=== PATIENT | female | born 1985 ===

== ENCOUNTER 2025-05-26 18:25 | Emergency (ER) | payer BC, SELFPAY ==
--- NOTE | ~2025-05-26 | XR_ITS ---
CLINICAL HISTORY: chest pain 2 view chest x-ray. Comparison: None Findings: The lungs are adequately expanded. No focal consolidation. No effusion or pneumothorax. Cardiac and mediastinal contours are within normal limits. No acute osseous abnormality Impression: No acute process. This document has been electronically signed by: Be Ham MD on 05/26/2025 19:41:48
[2025-05-26 18:31] VITALS: BP 148/87; PULSE 58; RESP 14; TEMP 37; O2SAT 100; BMI 20.6
--- NOTE | 2025-05-26 18:35 | ED_ITS ---
HPI - Chest Pain General Chief Complaint: Back Pain/Injury Stated Complaint: ?Pneumonia Time Seen by Provider: 05/26/25 20:57 Source: patient and old records reviewed Mode of arrival: ambulatory Limitations: no limitations History of Present Illness ED Provider: MAGGIE ARROYO narrative: 39 yo female with PMH of pneumonia 2 months ago who started with nasal congestion, thick secretions and facial pain, redness to eyes. She also has some dull L sided chest pain and back pain both sides and is worried she has pneumonia as this is how it started last time. She has not had fevers. She is not on OCPS, no travel or procedures. No hx of heart disease. She uses methadone and has cut down recently - she is snorting only at times no IVDA. She is a smoker. MD complaint: chest pain (URI, back pain) Onset (ago): day(s) (3) Timing of current episode: episodic Prior episodes: Yes Onset: during rest Pain location: left chest Pain radiation: none Severity: mild Quality: aching Relieving factors: nothing Exacerbating factors: nothing Context: recent illness Associated symptoms: cough Treatment prior to arrival: none Related Data Previous Rx's ?Medication ?Instructions ?Recorded amoxicillin 875 mg-potassium 1 tab PO BID #13 tabs 12/20 clavulanate 125 mg tablet Allergies Allergy/AdvReac Type Severity Reaction Status Date / Time risperidone (From RISPERDAL) Allergy Unknown TONGUE Verified 05/26/25 18:33 SWELLING. Review of Systems 2 Review of Systems: Constitutional : No Weight loss, No Fever, No Chills, ENT/Mouth : No Hearing loss, No Ear Pain, pos Nasal Congestion, pos Sinus Pain, No Hoarseness, No sore throat, pos Rhinorrhea, No Swallowing Difficulty Cardiovascular : pos Chest Pain, No SOB Respiratory : No Cough, No Dyspnea Gastrointestinal : No Nausea, No Vomiting, No Diarrhea, No abdominal Pain, No Hematochezia, No Melena Genitourinary : No Dysuria, No Urinary Frequency, No Hematuria, No Urinary Incontinence, Musculoskeletal : positive back pain Skin : No Skin Lesions, No rash Neuro : No Weakness, No Numbness, No Paresthesias, no loss of bowel or bladder incontinence, no saddle anesthesia all other systems reviewed and are negative PMFSH Past Medical History Attestation statement: The following information was validated with the patient. Source: old records reviewed Medical History Pneumonia Opiate use Social History Social History (Updated 05/26/25 @ 22:07 by Suzanna Robles DO) Patient Tobacco Use Status: Current everyday Tobacco user Smoked in Last 30 Days: Yes Use of substances other than those prescribed or required for medical reasons: Yes Substance Use Type: Heroin Advance Directives: No Advance Directives Information Provided: No Do you have a plan to hurt others: No Plan Patient : No Physical Exam 2 Vital Signs: Vital Signs: Last Vital Signs Temp 98.0 F 05/26/25 22:28 Pulse 70 05/26/25 22:28 Resp 18 05/26/25 22:28 BP 101/81 05/26/25 22:28 Pulse Ox 100 05/26/25 22:28 O2 Del Method Room Air 05/26/25 22:28 BMI result Body Mass Index 20.6 Appearance: Alert. Oriented X3. No acute distress. Eyes: Pupils equal, round and reactive to light. mild injected sclera no drainage ENT: Pharynx normal. TMs normal, facial pressure and max sinus bilateral ext puffiness no facial cellulitis Neck: Normal inspection. Neck supple. CVS: Normal heart rate and rhythm. Pulses normal. Respiratory: No respiratory distress. Breath sounds L lung scant exp wheezes upper lobe Abdomen: Soft and nontender. Back: no ttp Skin: Skin warm and dry. Normal skin color. Normal skin turgor. Extremities: No lower extremity edema. No calf ttp Neuro: Oriented X 3. No motor deficit. No sensory deficit. CN2-12 intact Course Course Course Narrative: This is an RME performed by Rosendo Ansari CNP: Additional HPI, ROS, PE not included below will be deferred to primary provider. patient is a 39 year presents emergency department for evaluation. Due to 3 months ago she was diagnosed with pneumonia, completed entire course of antibiotics. She has been experiencing pain diffusely across the mid back, anterior chest, fatigue and dizziness. Admits to having some moving previously. Denies cough, congestion, fevers or chills. Has had a decreased appetite but /vomiting. Plan: Serum labs, ECG, CXR Medications Administered Discontinued Medications Generic Name Dose Route Start Last Admin Trade Name Freq PRN Reason Stop Dose Admin Albuterol Sulfate 2 puff 05/26/25 21:56 05/26/25 22:08 Albuterol Sulfate 90 Mcg 8 Gm Inhaler INHALE 05/26/25 21:57 2 puff ONCE ONE Administration Amoxicillin/Clavulanate Potassium 875 mg 05/26/25 21:56 05/26/25 22:08 Amoxicillin/Potassium Clav 875 Mg Tablet PO 05/26/25 21:57 875 mg ONCE ONE Administration Medical Decision Making Medical Decision Making [facility] Narrative: 39 yo female with PMH of pneumonia, opiate use disorder here with c/o URI symptoms with exam consistent with sinusitis she also has vague back pain and chest pain but PERC negative, no risk factors for ACS, no IVDA to suggest endocarditis, distal pulses intact and symmetric and no HTN to suggest dissection. She is not toxic appearing will start on INH and augmentin and refer her to PCP for recheck HR Differential Diagnosis Differential Diagnoses: The differential diagnosis associated with the presentation includes no risk factors for ACS, PE neg by PERC, denies IVDA doubt endocarditis she is not toxic appearing slight bradycardia on EKG but no ischemia suspect URI and MSK pain will treat as sinusitis Admission/Observation Consideration of admission/observation: Escalation of care including admission/observation considered work up reassured can be managed with oral outpatient abx Lab Data [facility] Lab Attestation statement: I reviewed the patient's lab results. 05/26/25 18:48 05/26/25 18:48 Labs: Lab Results 05/26/25 Range/Units 18:48 WBC 9.6 (4.8-10.8) X10*3/uL RBC 3.94 L (4.20-5.50) X10*6/uL Hgb 12.2 (12.0-16.0) g/dl Hct 34.2 L (37.0-47.0) % MCV 86.8 (80.0-98.0) fL MCH 31.0 (27.0-33.0) pg MCHC 35.7 H (31.0-35.0) g/dl RDW 12.7 (11.0-16.0) % Plt Count 237 (160-400) X10*3/uL MPV 10.0 (9.4-12.3) fL Immature Gran % (Auto) 0.4 (0.0-0.4) % Neut % (Auto) 63.0 (45-73) % Lymph % (Auto) 28.8 (20-40) % Alfalfa % (Auto) 6.4 (2-11) % Eos % (Auto) 1.0 (0-4) % Baso % (Auto) 0.4 (0-2) % Lymph # (Auto) 2.8 (1.2-4.9) X10*3/uL Alfalfa # (Auto) 0.6 (0.1-1.2) X10*3/uL Eos # (Auto) 0.1 (0.0-0.4) X10*3/uL Baso # (Auto) 0.0 (0.0-0.2) X10*3/uL Abs Immat Gran (auto) 0.04 H (0.00-0.03) X10*3/uL Absolute Neuts (auto) 6.0 (2.0-8.3) x10*3/uL Absolute Nucleated RBC 0.000 (0.0-0.012) X10*3/uL Nucleated RBC % (auto) 0.0 (0.0-0.2) /100WBC Sodium 137 (135-145) mmol/L Potassium 3.5 (3.3-5.1) mmol/L Chloride 104 (96-108) mmol/L Carbon Dioxide 26 (22-29) mmol/L Anion Gap 11 L (12-20) BUN 11 (9-16) mg/dL Creatinine 0.63 (0.5-1.4) mg/dL Estim Creat Clear Calc 105.0 Estimated GFR > 60 Random Glucose 104 (60-115) mg/dL Calcium 8.9 (8.4-10.2) mg/dL Total Bilirubin 0.3 (0.0-1.0) mg/dL AST 21 (5-31) U/L ALT 19 (0-31) U/L Alkaline Phosphatase 44 (39-117) U/L Troponin I High Sens < 2.7 (<3.5-17.0) ng/L Total Protein 7.3 (6.5-8.0) g/dL Albumin 4.5 (3.5-5.0) g/dL Lipase 10 (8-78) U/L Influenza Type A (PCR) NEGATIVE (Negative) Influenza Type B (PCR) NEGATIVE (Negative) RSV RNA Qual (PCR) NEGATIVE (Negative) SARS-CoV-2 RNA (RT-PCR) NEGATIVE (Negative) Independent Interpretation I performed an independent interpretation of an: EKG and Plain X-Ray (normal ) Interpretation: Rate: 48 Rhythm: sinus bradycardia [place]: normal Normal P waves. Normal AIDAN. Normal QRS complex. ST T wave : no MIRLANDE, inverted t wave V1 qTC: 389 prior studies: no acute ischemia The study has been interpreted contemporaneously by me. . Radiology Impression Discussion of test interpretation with radiology: I have reviewed the radiologist's reading. Prescription Management I considered prescription management with: Antibiotic and Other Discharge Plan Discharge Clinical Impression: Thoracic back pain, Sinusitis Patient Disposition: Home, Self-Care Instructions: Sinusitis (ED), Back Pain (ED) Additional Instructions: labs reassuring EKG no signs of heart attack but slow heart rate - can recheck your pulse in clinic repeat checks normal - no significant concern heart tests normal, chest xray no pneumonia negative for covid, flu, rsv return for any worsening symptoms or concerns can use inhaler 2 puffs every 4 hours for wheezing On amoxicillin-clavulanate, softer bowel movements are to be expected. Call your provider if you move your bowels more than 4 times a day, your bowel movements are almost all liquid, or you get a rash.? Prescriptions: New amoxicillin-pot clavulanate 875-125 mg tablet 1 tab PO BID Qty: 13 0RF Interventions: ED Discharge Assessment Last Done: 05/26/25 22:28 Discharge Date/Time: 05/26/25 22:29 Print Language: Setswana
--- NOTE | 2025-05-26 18:35 | ECG_ITS ---
Test Reason : cp Blood Pressure : */* mmHG Vent. Rate : 48 BPM Atrial Rate : 48 BPM P-R Int : 180 ms QRS Dur : 94 ms QT Int : 436 ms P-R-T Axes : -7 59 33 degrees QTcB Int : 389 ms Sinus bradycardia Minimal voltage criteria for LVH, may be normal variant ( Sokolow-Abrams ) Borderline ECG No previous ECGs available Referred By: Generic ED Physician Electronically Signed By: MAURICIO ALAS MD
[2025-05-26 18:52] LABS: MANUAL DIFF FLAG NO
[2025-05-26 18:56] LABS: Hematocrit 34.2 % (37.0-47.0); Hemoglobin 12.2 g/dl (12.0-16.0); Imm Gran Abs Auto 0.04 X10*3/uL (0.00-0.03); Imm Gran Pct Auto 0.4 % (0.0-0.4); Lymphocytes Absolute Auto 2.8 X10*3/uL (1.2-4.9); Mean Corpuscular HGB Conc 35.7 g/dl (31.0-35.0); Mean Corpuscular Hemoglobin 31.0 pg (27.0-33.0); Mean Corpuscular Volume 86.8 fL (80.0-98.0); NRBC Abs Auto 0.000 X10*3/uL (0.0-0.012); NRBC Pct Auto 0.0 /100WBC (0.0-0.2); Platelet Count 237 X10*3/uL (160-400); Red Blood Count 3.94 X10*6/uL (4.20-5.50); White Blood Count 9.6 X10*3/uL (4.8-10.8)
[2025-05-26 19:10] LABS: Alanine Aminotransferase 19 U/L (0-31); Albumin Level 4.5 g/dL (3.5-5.0); Alkaline Phosphatase 44 U/L (39-117); Anion Gap 11 (12-20); Aspartate Amino Transferase 21 U/L (5-31); Blood Urea Nitrogen 11 mg/dL (9-16); Calcium 8.9 mg/dL (8.4-10.2); Carbon Dioxide 26 mmol/L (22-29); Chloride 104 mmol/L (96-108); Creatinine Clr Calc Pharmacy 105.0; Estimated Glomerular Filt Rate > 60; Lipase 10 U/L (8-78); Potassium 3.5 mmol/L (3.3-5.1); Sodium 137 mmol/L (135-145); Total Protein 7.3 g/dL (6.5-8.0)
[2025-05-26 19:19] LABS: Troponin-I High Sensitivity < 2.7 ng/L (<3.5-17.0)
[2025-05-26 19:32] LABS: Resp Syncy Virus RNA Qual PCR NEGATIVE (Negative); SARS COV2 PCR INHOUSE NEGATIVE (Negative)
[2025-05-26 20:23] VITALS: BP 126/81; PULSE 65; RESP 20; TEMP 36.7; O2SAT 99
[2025-05-26 22:00] VITALS: BP 101/81; PULSE 70; RESP 18; TEMP 36.7; O2SAT 100
[2025-05-26] MEDS: Albuterol Sulfate 90 MCG 8 GM INHALER 2 PUFF INHALE (22:08)
[2025-05-26 22:28] VITALS: BP 101/81; PULSE 70; RESP 18; TEMP 36.7; O2SAT 100
== END 2025-05-26 22:29 | disposition home or self-care (01) ==
PROVIDERS: Nurse Practitioner Family; Emergency Provider Emergency Medicine
DX: M54.6 Pain in thoracic spine (principal); J32.9 Chronic sinusitis, unspecified; M54.50 Low back pain, unspecified; R09.81 Nasal congestion; R07.89 Other chest pain; R51.9 Headache, unspecified; F17.210 Nicotine dependence, cigarettes, uncomplicated; R42 Dizziness and giddiness; Z03.818 Encounter for observation for suspected exposure to other biological agents ruled out; Z79.899 Other long term (current) drug therapy
CPT/HCPCS: 36415; 71046; 80053; 83690; 84484; 85025; 87637; 93005; 99284

== ENCOUNTER → 2025-05-26 18:35 | Outpatient (BNV) | payer BC, SELFPAY | PROVIDERS: Visit Provider Radiology Vascular & Interventional Radiology | DX: R07.9 Chest pain, unspecified (principal) | CPT/HCPCS: 71046 ==

== ENCOUNTER → 2025-05-26 18:35 | Outpatient (BNV) | payer BC, SELFPAY | PROVIDERS: Emergency Provider Emergency Medicine; Visit Provider Internal Medicine Cardiovascular Disease | DX: R00.1 Bradycardia, unspecified (principal) | CPT/HCPCS: 93010 ==